=== PATIENT | male | born 1995 | race Two or more races ===

== ENCOUNTER 2016-08-13 14:22 | Emergency (ER) | payer OTHER ==
[~2016-08-13] VITALS: Ht 177.8 cm; Wt 75.5 kg
[~2016-08-13 14:22] MED LIST: NOHOMEMEDS
[2016-08-13 17:13] VITALS: BP 128/64
== END 2016-08-13 17:13 | disposition home or self-care (01) ==
LOC: EME 14:22
DX: S82.831A Other fracture of upper and lower end of right fibula, initial encounter for closed fracture (principal); X58.XXXA Exposure to other specified factors, initial encounter; Y93.67 Activity, basketball; Z94.5 Skin transplant status
CPT/HCPCS: 73610; 99281; 99284

== ENCOUNTER 2017-02-16 22:17 | Emergency (ER) | payer OTHER ==
[~2017-02-16] VITALS: Ht 177.8 cm; Wt 78.0 kg
[2017-02-16 22:40] VITALS: BP 113/59
== END 2017-02-17 00:08 | disposition home or self-care (01) ==
LOC: EME 22:17
DX: S00.33XA Contusion of nose, initial encounter (principal); W50.0XXA Accidental hit or strike by another person, initial encounter; Y93.67 Activity, basketball
CPT/HCPCS: 70160; 99281; 99284